=== PATIENT | male | born 1975 | race Caucasian/White ===

== ENCOUNTER → 2016-11-13 | Outpatient (REF) | payer BC | LOC: M SFHCPLAZ 15:23 | PROVIDERS: ATTEND Family Medicine | DX: J02.9 Acute pharyngitis, unspecified (principal) ==

== ENCOUNTER 2016-12-08 17:02 | Emergency (ER) | payer BC ==
[2016-12-08] MEDS ORDERED: NAPROXEN 250 MG TAB As Ordered ONE (19:30)
--- NOTE | 2016-12-08 19:38 | EDDOCDS ---
Physician Documentation [facility] Name: Filiberto Balbuena Age: 41 yrs Sex: Male : 1975 Arrival Date: 12/08/2016 Time: 17:02 Bed I2 / M2 Private MD: Disposition: 12/08/16 19:23 Discharged to Home/Self Care. Impression: Strain of muscle(s) and tendon(s) of the rotator cuff of left shoulder - and left pectoral. - Condition is Stable. - Discharge Instructions: Muscle Strain, Rotator Cuff Injury. - Prescriptions for Naprosyn 500 mg Oral Tablet - take 1 tablet by ORAL route 2 times per day take with food; 30 tablet. Prilosec 20 mg Oral Capsule - take 1 capsule by ORAL route once daily; 10 capsule. - Medication Reconciliation, Local Pharmacy Hours form. - Follow up: Ken Owen; When: As needed; Reason: Recheck today's complaints. - Problem is new. - Symptoms are unchanged. Historical: - Allergies: no known allergies; - Home Meds: 1. none - PMHx: GERD; - PSHx: none; - Social history: Smoking status: Patient states was never smoker of tobacco. No barriers to communication noted, The patient speaks fluent Salvadorean, Speaks appropriately for age. - Family history: No immediate family members are acutely ill. - : The pt / caregiver states he / she is not on anticoagulants. Home medication list is obtained from the patient. - Exposure Risk Screening:: None identified. Vital Signs: 12/08 17:03 BP 153 / 82; Pulse 87; Resp 16; Temp 97.5(T); Pulse Ox 100% ; Weight 84.82 kg / 187 lbs lr2 (R); Height 6 ft. 0 in. (182.88 cm) (R); Pain 7/10; 19:36 BP 124 / 81; Pulse 72; Resp 18; Temp 96.7(O); Pulse Ox 96% on R/A; Pain 3/10; kb5 17:03 Body Mass Index 25.36 (84.82 kg, 182.88 cm) lr2 MDM: 17:09 ECG WITH READING ER PHYS+CARDIAG ordered. EDMS 18:35 Troponin Ordered. EDMS 18:51 Financial registration complete. gb 19:19 Troponin Reviewed. ar2 19:20 [facility] Payment Agreement was scanned into [employer] and attached to record. gb 19:27 Naproxen 500 mg PO once; administer with food or milk ordered. ar2 Administered Medications: 19:34 Drug: Naproxen 500 mg [naproxen 250 mg tablet (2 tabs)] Route: PO; mb9 Signatures: Dispatcher [employer] EDMS Kristine Toribio, Cristhian Reg gb Michelle Xavier RN RN cecilio3 Bob Munoz PA-C PA-C ar2 Kristina Rocha RN RN Blas Andersen RN RN mb9 The chart was reviewed and I authenticate all verbal orders and agree with the evaluation and treatment provided.Attachments: 19:20 [facility] Payment Agreement gb MTDD
--- NOTE | 2016-12-08 19:38 | EDDOCDS ---
Nurse's Notes [facility] Name: Filiberto Balbuena Age: 41 yrs Sex: Male : 1975 Arrival Date: 12/08/2016 Time: 17:02 Bed I2 / M2 Private MD: Diagnosis: Strain of muscle(s) and tendon(s) of the rotator cuff of left shoulder-and left pectoral Presentation: 12/08 17:05 Presenting complaint: Patient states: left upper chest pain that started today. Adult dsf Sepsis Screening: The patient does not have new or worsening altered mentation. Patient's respiratory rate is less than 22. Systolic blood pressure is greater than 100. Patient has a qSOFA score of 0- Negative Sepsis Screen. Suicide/Homicide risk assessment- the patient denies having any suicidal and/or homicidal ideations and does not present with any other emotional, behavioral or mental health complaints. Status: Patient is not a pharmacy services representative or dependent. Status: Transition of care: patient was not received from another setting of care. 17:05 Acuity: MELISSA Level 3 dsf 17:05 Method Of Arrival: Walkin/Carried/Asstd dsf Triage Assessment: 17:07 General: Appears in no apparent distress, Behavior is appropriate for age, cooperative. dsf Pain: Location: anterior aspect of left upper chest Pain currently is 7 out of 10 on a pain scale. Pain does not radiate. Quality of pain is described as sharp. HIV screening NA for this visit Offered previously. Respiratory: Denies shortness of breath. GI: Denies nausea. Historical: - Allergies: no known allergies; - Home Meds: 1. none - PMHx: GERD; - PSHx: none; - Social history: Smoking status: Patient states was never smoker of tobacco. No barriers to communication noted, The patient speaks fluent Andorran, Speaks appropriately for age. - Family history: No immediate family members are acutely ill. - : The pt / caregiver states he / she is not on anticoagulants. Home medication list is obtained from the patient. - Exposure Risk Screening:: None identified. Screenin:54 Screening information is obtained from the patient. Fall risk: No risks identified. mb9 Assistance ADL's: requires no assistance with activities of daily living. Abuse/DV Screen: The patient / caregiver reports he/she is: not in a situation that causes fear, pain or injury. Nutritional screening: No deficits noted. Advance Directives: There is no active DNR order. home support is adequate. Assessment: 18:54 General: Appears in no apparent distress, Behavior is appropriate for age, cooperative. mb9 Pain: Location: epigastric area and anterior aspect of left shoulder Pain currently is 5 out of 10 on a pain scale. Cardiovascular: Heart tones S1 S2 present. Respiratory: Airway is patent Respiratory effort is even, unlabored, Breath sounds are clear bilaterally. 19:34 Reassessment: Patient appears in no apparent distress at this time. Patient states mb9 feeling better. General: Appears in no apparent distress, Behavior is appropriate for age, cooperative. Respiratory: Airway is patent Respiratory effort is even, unlabored. Vital Signs: 17:03 BP 153 / 82; Pulse 87; Resp 16; Temp 97.5(T); Pulse Ox 100% ; Weight 84.82 kg (R); lr2 Height 6 ft. 0 in. (182.88 cm) (R); Pain 7/10; 19:36 BP 124 / 81; Pulse 72; Resp 18; Temp 96.7(O); Pulse Ox 96% on R/A; Pain 3/10; kb5 17:03 Body Mass Index 25.36 (84.82 kg, 182.88 cm) lr2 Vitals: 17:03 Log In Time: December 08, 2016 at 17:02. lr2 ED Course: 17:03 Patient visited by Johana Fowler. lr2 17:03 Patient moved to Waiting lr2 17:05 Patient moved to Pre RCE lr2 17:06 Triage Initiated dsf 17:07 Patient moved to PR2 / 26 dsf 17:14 EKG done. (by ED staff). Reviewed by Vy AU. nb2 17:15 Patient visited by Yanna Quinteros. nb2 17:15 Patient moved to Pre RCE nb2 18:17 Patient moved to Triage 3 ct3 18:29 Bob Munoz PA-C is PHCP. ar2 18:29 Loren Cantu MD is Attending Physician. ar2 18:29 Patient visited by Bob Munoz PA-C. ar2 18:41 Patient moved to I2 / M2 ct3 18:41 Troponin Sent. srm 18:54 The patient / caregiver is instructed regarding the plan of care and ED course. mb9 19:06 Patient visited by Barrington Ricks PCA. kb5 19:19 Patient name changed from Filiberto\S\W\S\Balbuena\S\ to Filiberto\S\Renato\S\Balbuena. EDMS 19:20 [facility] Payment Agreement was scanned into Can'tWait and attached to record. 19:22 Ken Owen is Referral Physician. ar2 19:35 No IV's were initiated during this patient's visit. No procedures done that require mb9 assistance. 19:36 Patient visited by Barrington Ricks PCA. kb5 Administered Medications: 19:34 Drug: Naproxen 500 mg [naproxen 250 mg tablet (2 tabs)] Route: PO; mb9 Order Results: Lab Order: Troponin; SPEC'M 12/08/16 18:40 Test: TROPONIN I; Value: < 0.02; Range: < 0.10; Units: NG/ML; Status: F Test Note: ; Troponin I Reference Interval for [employer] LOCI: 99th Percentile= 0.00-0.045 ng/ml Risk Stratification: <= 0.10 ng/ml Decreased Risk for Adverse Clinical Events. 0.10-1.50 ng/ml Increased Risk for Adverse Clinical Events. Evaluation of additional criterion and/or repeat testing in 2-6 hours is suggested to rule out myocardial damage. >= 1.50 ng/ml Indicative of Myocardial Injury. Outcome: 19:23 Discharge ordered by Provider. ar2 19:35 Discharge Assessment: Patient awake, alert and oriented x 3. No cognitive and/or mb9 functional deficits noted. Patient verbalized understanding of disposition instructions. patient administered narcotics - no. The following High Risk Discharge criteria are identified: None. Discharged to home ambulatory. Condition: good Condition: stable Condition: improved. Discharge instructions given to patient, Instructed on discharge instructions, follow up and referral plans. medication usage, Demonstrated understanding of instructions, medications, Pt was receptive of discharge instructions/ teaching. Prescriptions given X 2. No special radiology studies were completed. Property :Personal belongings accompany Pt. 19:37 Patient left the ED. jo3 Signatures: Dispatcher [facility] EDIA Leeann Aguilar RN RN Kristine Armendariz, Reg Reg gb Michelle Xavier,RN RN jo3 Millicent, Barrington, TEXTILE COATING MACHINE OPERATOR TEXTILE COATING MACHINE OPERATOR kb5 Bob Munoz, PAJennyferC PAJennyferC ar2 Seema De La O, TEXTILE COATING MACHINE OPERATOR TEXTILE COATING MACHINE OPERATOR ct3 Kristina Rocha,RN RN Blas AndersenRN RN mb9 Yanna Quinteros2 Johana Fowler2 MTDD
--- NOTE | 2016-12-08 19:52 | ECGEPIP ---
Stationary ECG Study [facility] - ED Test Date: 2016-12-08 Pat Name: CLEMENT FISH Department: Room: - Gender: M Clinical Reviewer: vu : 1975 Requested By: KELVIN Landin Order Number: [id number] Reading MD: aMnsi Mc Measurements Intervals [place] Rate: 77 P: 66 NM: 175 QRS: 53 QRSD: 94 T: 57 QT: 353 QTc: 400 Interpretive Statements SINUS RHYTHM SIMILAR 11/26/13 Electronically Signed On 12-08-2016 19:52:18 EST by Mansi Mc
--- NOTE | 2016-12-10 20:38 | EDDOCDS ---
Physician Documentation [facility] Name: Filiberto Balbuena Age: 41 yrs Sex: Male : 1975 Arrival Date: 12/08/2016 Time: 17:02 Bed I2 / M2 Private MD: Disposition: 12/08/16 19:23 Discharged to Home/Self Care. Impression: Strain of muscle(s) and tendon(s) of the rotator cuff of left shoulder - and left pectoral. - Condition is Stable. - Discharge Instructions: Muscle Strain, Rotator Cuff Injury. - Prescriptions for Naprosyn 500 mg Oral Tablet - take 1 tablet by ORAL route 2 times per day take with food; 30 tablet. Prilosec 20 mg Oral Capsule - take 1 capsule by ORAL route once daily; 10 capsule. - Medication Reconciliation, Local Pharmacy Hours form. - Follow up: Ken Owen; When: As needed; Reason: Recheck today's complaints. - Problem is new. - Symptoms are unchanged. Historical: - Allergies: no known allergies; - Home Meds: 1. none - PMHx: GERD; - PSHx: none; - Social history: Smoking status: Patient states was never smoker of tobacco. No barriers to communication noted, The patient speaks fluent Croatian, Speaks appropriately for age. - Family history: No immediate family members are acutely ill. - : The pt / caregiver states he / she is not on anticoagulants. Home medication list is obtained from the patient. - Exposure Risk Screening:: None identified. Vital Signs: 12/08 17:03 BP 153 / 82; Pulse 87; Resp 16; Temp 97.5(T); Pulse Ox 100% ; Weight 84.82 kg / 187 lbs lr2 (R); Height 6 ft. 0 in. (182.88 cm) (R); Pain 7/10; 19:36 BP 124 / 81; Pulse 72; Resp 18; Temp 96.7(O); Pulse Ox 96% on R/A; Pain 3/10; kb5 17:03 Body Mass Index 25.36 (84.82 kg, 182.88 cm) lr2 MDM: 17:09 ECG WITH READING ER PHYS+CARDIAG ordered. EDMS 18:35 Troponin Ordered. EDMS 18:51 Financial registration complete. gb 19:19 Troponin Reviewed. ar2 19:20 [facility] Payment Agreement was scanned into MEDHOST and attached to record. gb 19:27 Naproxen 500 mg PO once; administer with food or milk ordered. ar2 20:45 T-Sheet-- Draft Copy was scanned into MEDHOST and attached to record. r 12/10 11:10 ECG/EKG was scanned into MED[employer] and attached to record. gb Administered Medications: 12/08 19:34 Drug: Naproxen 500 mg [naproxen 250 mg tablet (2 tabs)] Route: PO; mb9 Signatures: Dispatcher [employer] EDMS Kristine Toribio, Reg Reg gb Michelle XavierRN RN cceilio3 oBb Munoz PA-C PASasha ar2 Kristina RochaRN RN Blas AndersenRN RN theodore9 Christi Cotton The chart was reviewed and I authenticate all verbal orders and agree with the evaluation and treatment provided.Attachments: 19:20 [facility] Payment Agreement gb 20:45 T-Sheet-- Draft Copy [facility] 12/10 11:10 ECG/EKG gb Chart Complete MTDD
--- NOTE | 2016-12-10 20:39 | EDDOCDS ---
Physician Documentation [facility] Name: Filiberto Balbuena Age: 41 yrs Sex: Male : 1975 Arrival Date: 12/08/2016 Time: 17:02 Bed I2 / M2 Private MD: Disposition: 12/08/16 19:23 Discharged to Home/Self Care. Impression: Strain of muscle(s) and tendon(s) of the rotator cuff of left shoulder - and left pectoral. - Condition is Stable. - Discharge Instructions: Muscle Strain, Rotator Cuff Injury. - Prescriptions for Naprosyn 500 mg Oral Tablet - take 1 tablet by ORAL route 2 times per day take with food; 30 tablet. Prilosec 20 mg Oral Capsule - take 1 capsule by ORAL route once daily; 10 capsule. - Medication Reconciliation, Local Pharmacy Hours form. - Follow up: Ken Owen; When: As needed; Reason: Recheck today's complaints. - Problem is new. - Symptoms are unchanged. Historical: - Allergies: no known allergies; - Home Meds: 1. none - PMHx: GERD; - PSHx: none; - Social history: Smoking status: Patient states was never smoker of tobacco. No barriers to communication noted, The patient speaks fluent Icelandic, Speaks appropriately for age. - Family history: No immediate family members are acutely ill. - : The pt / caregiver states he / she is not on anticoagulants. Home medication list is obtained from the patient. - Exposure Risk Screening:: None identified. Vital Signs: 12/08 17:03 BP 153 / 82; Pulse 87; Resp 16; Temp 97.5(T); Pulse Ox 100% ; Weight 84.82 kg / 187 lbs lr2 (R); Height 6 ft. 0 in. (182.88 cm) (R); Pain 7/10; 19:36 BP 124 / 81; Pulse 72; Resp 18; Temp 96.7(O); Pulse Ox 96% on R/A; Pain 3/10; kb5 17:03 Body Mass Index 25.36 (84.82 kg, 182.88 cm) lr2 MDM: 17:09 ECG WITH READING ER PHYS+CARDIAG ordered. EDMS 18:35 Troponin Ordered. EDMS 18:51 Financial registration complete. gb 19:19 Troponin Reviewed. ar2 19:20 [facility] Payment Agreement was scanned into MEDHOST and attached to record. gb 19:27 Naproxen 500 mg PO once; administer with food or milk ordered. ar2 20:45 T-Sheet-- Draft Copy was scanned into MEDHOST and attached to record. r 12/10 11:10 ECG/EKG was scanned into MEDHOST and attached to record. gb Administered Medications: 12/08 19:34 Drug: Naproxen 500 mg [naproxen 250 mg tablet (2 tabs)] Route: PO; mb9 Signatures: Dispatcher [employer] EDMS Krsitine Toribio, Reg Reg gb Michelle XavierRN RN cecilio3 Bob Munoz PA-C PASasha ar2 Kristina RochaRN RN Blas AndersenRN RN theodore9 Christi Cotton The chart was reviewed and I authenticate all verbal orders and agree with the evaluation and treatment provided.Attachments: 19:20 [facility] Payment Agreement gb 20:45 T-Sheet-- Draft Copy [facility] 12/10 11:10 ECG/EKG gb Chart Complete MTDD
--- NOTE | 2016-12-10 20:39 | EDDOCDS ---
Nurse's Notes [facility] Name: Clement Fish Age: 41 yrs Sex: Male : 1975 Arrival Date: 12/08/2016 Time: 17:02 Bed I2 / M2 Private MD: Diagnosis: Strain of muscle(s) and tendon(s) of the rotator cuff of left shoulder-and left pectoral Presentation: 12/08 17:05 Presenting complaint: Patient states: left upper chest pain that started today. Adult dsf Sepsis Screening: The patient does not have new or worsening altered mentation. Patient's respiratory rate is less than 22. Systolic blood pressure is greater than 100. Patient has a qSOFA score of 0- Negative Sepsis Screen. Suicide/Homicide risk assessment- the patient denies having any suicidal and/or homicidal ideations and does not present with any other emotional, behavioral or mental health complaints. Status: Patient is not a service line layer or dependent. Status: Transition of care: patient was not received from another setting of care. 17:05 Acuity: MELISSA Level 3 dsf 17:05 Method Of Arrival: Walkin/Carried/Asstd dsf Triage Assessment: 17:07 General: Appears in no apparent distress, Behavior is appropriate for age, cooperative. dsf Pain: Location: anterior aspect of left upper chest Pain currently is 7 out of 10 on a pain scale. Pain does not radiate. Quality of pain is described as sharp. HIV screening NA for this visit Offered previously. Respiratory: Denies shortness of breath. GI: Denies nausea. Historical: - Allergies: no known allergies; - Home Meds: 1. none - PMHx: GERD; - PSHx: none; - Social history: Smoking status: Patient states was never smoker of tobacco. No barriers to communication noted, The patient speaks fluent Rwandan, Speaks appropriately for age. - Family history: No immediate family members are acutely ill. - : The pt / caregiver states he / she is not on anticoagulants. Home medication list is obtained from the patient. - Exposure Risk Screening:: None identified. Screenin:54 Screening information is obtained from the patient. Fall risk: No risks identified. mb9 Assistance ADL's: requires no assistance with activities of daily living. Abuse/DV Screen: The patient / caregiver reports he/she is: not in a situation that causes fear, pain or injury. Nutritional screening: No deficits noted. Advance Directives: There is no active DNR order. home support is adequate. Assessment: 18:54 General: Appears in no apparent distress, Behavior is appropriate for age, cooperative. mb9 Pain: Location: epigastric area and anterior aspect of left shoulder Pain currently is 5 out of 10 on a pain scale. Cardiovascular: Heart tones S1 S2 present. Respiratory: Airway is patent Respiratory effort is even, unlabored, Breath sounds are clear bilaterally. 19:34 Reassessment: Patient appears in no apparent distress at this time. Patient states mb9 feeling better. General: Appears in no apparent distress, Behavior is appropriate for age, cooperative. Respiratory: Airway is patent Respiratory effort is even, unlabored. Vital Signs: 17:03 BP 153 / 82; Pulse 87; Resp 16; Temp 97.5(T); Pulse Ox 100% ; Weight 84.82 kg (R); lr2 Height 6 ft. 0 in. (182.88 cm) (R); Pain 7/10; 19:36 BP 124 / 81; Pulse 72; Resp 18; Temp 96.7(O); Pulse Ox 96% on R/A; Pain 3/10; kb5 17:03 Body Mass Index 25.36 (84.82 kg, 182.88 cm) lr2 Vitals: 17:03 Log In Time: December 08, 2016 at 17:02. lr2 ED Course: 17:03 Patient visited by Johana Fowler. lr2 17:03 Patient moved to Waiting lr2 17:05 Patient moved to Pre RCE lr2 17:06 Triage Initiated dsf 17:07 Patient moved to PR2 / 26 dsf 17:14 EKG done. (by ED staff). Reviewed by Vy AU. nb2 17:15 Patient visited by Yanna Quinteros. nb2 17:15 Patient moved to Pre RCE nb2 18:17 Patient moved to Triage 3 ct3 18:29 Bob Munoz PA-C is PHCP. ar2 18:29 Loren Cantu MD is Attending Physician. ar2 18:29 Patient visited by Bob Munoz PA-C. ar2 18:41 Patient moved to I2 / M2 ct3 18:41 Troponin Sent. srm 18:54 The patient / caregiver is instructed regarding the plan of care and ED course. mb9 19:06 Patient visited by Barrington Ricks PCA. kb5 19:19 Patient name changed from Clement\Bennett\W\S\Fish\S\ to Clement\Bennett\Renato\S\Fish. EDMS 19:20 [facility] Payment Agreement was scanned into MEDHOST and attached to record. gb 19:22 Ken Owen is Referral Physician. ar2 19:35 No IV's were initiated during this patient's visit. No procedures done that require mb9 assistance. 19:36 Patient visited by Barrington Ricks PCA. kb5 20:06 EKG-ADULT Returned. EDMS 20:45 T-Sheet-- Draft Copy was scanned into [employer] and attached to record. klr 02 11:10 ECG/EKG was scanned into MEDHOST and attached to record. gb Administered Medications: 12/08 19:34 Drug: Naproxen 500 mg [naproxen 250 mg tablet (2 tabs)] Route: PO; mb9 Order Results: Lab Order: Troponin; SPEC'M 12/08/16 18:40 Test: TROPONIN I; Value: < 0.02; Range: < 0.10; Units: NG/ML; Status: F Test Note: ; Troponin I Reference Interval for [employer] [place] LOCI: 99th Percentile= 0.00-0.045 ng/ml Risk Stratification: <= 0.10 ng/ml Decreased Risk for Adverse Clinical Events. 0.10-1.50 ng/ml Increased Risk for Adverse Clinical Events. Evaluation of additional criterion and/or repeat testing in 2-6 hours is suggested to rule out myocardial damage. >= 1.50 ng/ml Indicative of Myocardial Injury. Radiology Order: EKG-ADULT Test: EKG-ADULT REASON FOR EXAMINATION: Chest Pain; Stationary ECG Study; [facility] - ED; ; Test Date: 2016-12-08; Pat Name: CLEMENT FISH Department:; Room: -; Gender: M Front Office Coordinator: vu; : 1975 Requested By: LOREN Landin; Order Number: [id number] Michael MD: Mansi Mc; Measurements; Intervals [place]; Rate: 77 P: 66; NC: 175 QRS: 53; QRSD: 94 T: 57; QT: 353; QTc: 400; Interpretive Statements; SINUS RHYTHM; SIMILAR 11/26/13; Electronically Signed On 12-08-2016 19:52:18 EST by Mansi Mc; Outcome: 19:23 Discharge ordered by Provider. ar2 19:35 Discharge Assessment: Patient awake, alert and oriented x 3. No cognitive and/or mb9 functional deficits noted. Patient verbalized understanding of disposition instructions. patient administered narcotics - no. The following High Risk Discharge criteria are identified: None. Discharged to home ambulatory. Condition: good Condition: stable Condition: improved. Discharge instructions given to patient, Instructed on discharge instructions, follow up and referral plans. medication usage, Demonstrated understanding of instructions, medications, Pt was receptive of discharge instructions/ teaching. Prescriptions given X 2. No special radiology studies were completed. Property :Personal belongings accompany Pt. 19:37 Patient left the ED. jo3 Signatures: Dispatcher [employer] EDMS Leeann Aguilar, RN RN [facility] Kristine Toribio, Reg Reg Michelle Xavier RN RN jo3 Barrington Ricks, SENIOR INTERNAL AUDITOR SENIOR INTERNAL AUDITOR kb5 Bob Munoz PA-C PASasha ar2 Seema De La O, SENIOR INTERNAL AUDITOR SENIOR INTERNAL AUDITOR ct3 Kristina RochaRN Blas Rodriguez RN RN mb9 Christi Cotton, Yanna womack2 Johana Fowler2 Chart Complete MTDD
== END 2016-12-08 19:37 | disposition home or self-care (01) ==
LOC: M ED 17:02
DX: S46.012A Strain of muscle(s) and tendon(s) of the rotator cuff of left shoulder, initial encounter (principal); X50.0XXA Overexertion from strenuous movement or load, initial encounter; Y92.89 Other specified places as the place of occurrence of the external cause; Y93.89 Activity, other specified; Y99.0 Civilian activity done for income or pay; K21.9 Gastro-esophageal reflux disease without esophagitis

== ENCOUNTER → 2017-01-04 | Outpatient (REF) | payer BC | LOC: M SFHCPLAZ 10:12 | PROVIDERS: ATTEND Family Medicine | DX: Z82.3 Family history of stroke (principal) ==

== ENCOUNTER → 2019-09-29 | Outpatient (REF) | payer BC ==
[2019-09-29 13:19] LABS: BLOOD UREA NITROGEN 11 MG/DL (7-18); CALCIUM LEVEL 9.3 MG/DL (8.5-10.1); CARBON DIOXIDE LEVEL 32 MEQ/L (21-32); CHLORIDE LEVEL 106 MEQ/L (98-107); CHOLESTEROL LEVEL 175 MG/DL (<200); CHOLESTEROL RISK RATIO 3.365 (<5); CREATININE FOR GFR 0.99 MG/DL (0.70-1.30); GLOMERULAR FILTRATION RATE > 60.0 (>60); GLUCOSE, FASTING 96 MG/DL (70-100); HDL CHOLESTEROL 52 MG/DL (>40); HEMOGLOBIN A1c 5.1 %; LDL CHOLESTEROL 101 MG/DL (<100); NON-HDL-C 123 MG/DL; POTASSIUM SERUM 4.2 MEQ/L (3.5-5.1); SODIUM LEVEL 141 MEQ/L (136-145); TRIGLYCERIDES LEVEL 108 MG/DL (<150)
== END ==
LOC: M SFHCPLAZ 09:52
PROVIDERS: ATTEND Nurse Practitioner Adult Health
DX: Z13.1 Encounter for screening for diabetes mellitus (principal); E78.00 Pure hypercholesterolemia, unspecified

== ENCOUNTER 2022-05-26 12:19 | Emergency (ER) | payer BC ==
[~2022-05-26] VITALS: Ht 180.3 cm; Wt 79.5 kg
[2022-05-26] MEDS ORDERED: OMEP40CA5 PO (12:26)
[2022-05-26] MEDS ORDERED: LIDOCAINE 5% (LIDODERM) PATCH TD STA (14:33)
[2022-05-26 14:51] VITALS: BP 116/84
[2022-05-27] MEDS ORDERED: **NOTE PATIENT COMMENT** MISC XX ONE (03:00)
== END 2022-05-26 14:54 | disposition home or self-care (01) ==
LOC: M ED 12:19
DX: S22.41XA Multiple fractures of ribs, right side, initial encounter for closed fracture (principal); V86.95XA Unspecified occupant of 3- or 4- wheeled all-terrain vehicle (ATV) injured in nontraffic accident, initial encounter; Y92.099 Unspecified place in other non-institutional residence as the place of occurrence of the external cause; Z88.0 Allergy status to penicillin

== ENCOUNTER → 2023-12-26 | Outpatient (CLI) | payer BC ==
[~2023-12-26] MED LIST: OMEP40CA5 PO
[2023-12-26 16:37] LABS: HEMATOCRIT 49.3 % (42.0-52.0); HEMOGLOBIN 16.9 g/dl (13.5-17.5); MEAN CORPUSCULAR HEMOGLOBIN 30.5 pg (27.0-33.0); MEAN CORPUSCULAR HGB CONC 34.3 g/dl (32.0-36.5); MEAN CORPUSCULAR VOLUME 88.8 fl (80.0-96.0); PLATELET COUNT, AUTOMATED 365 10^3/uL (150-450); RED BLOOD COUNT 5.55 10^6/uL (4.30-6.10); WHITE BLOOD COUNT 9.2 10^3/uL (4.0-10.0)
[2023-12-26 17:05] LABS: HEMOGLOBIN A1c 4.9 % (4.0-6.0)
[2023-12-26 17:07] LABS: ALBUMIN 4.2 G/DL (3.2-5.2); ALKALINE PHOSPHATASE 95 U/L (46-116); ALT/SGPT 30 U/L (7.0-40); AST/SGOT 19 U/L (<34); BLOOD UREA NITROGEN 12 MG/DL (9-23); CALCIUM LEVEL 9.1 MG/DL (8.5-10.1); CARBON DIOXIDE LEVEL 31 MMOL/L (20-31); CHLORIDE LEVEL 103 MMOL/L (98-107); CHOLESTEROL LEVEL 172 MG/DL (<200); CHOLESTEROL RISK RATIO 3.78 (<5); CREATININE FOR GFR 0.86 MG/DL (0.70-1.30); GLOMERULAR FILTRATION RATE > 60.0 (>60); GLUCOSE, FASTING 77 MG/DL (60-100); HDL CHOLESTEROL 45.4 MG/DL (>40); NON-HDL-C 126.6 MG/DL; POTASSIUM SERUM 4.3 MMOL/L (3.5-5.1); SODIUM LEVEL 139 MMOL/L (136-145); TOTAL PROTEIN 7.4 G/DL (5.7-8.2); TRIGLYCERIDES LEVEL 123 MG/DL (<150)
== END ==
LOC: M WUC 10:28
PROVIDERS: ATTEND Nurse Practitioner Adult Health
DX: Z00.00 Encounter for general adult medical examination without abnormal findings (principal); Z13.1 Encounter for screening for diabetes mellitus; Z13.220 Encounter for screening for lipoid disorders